=== PATIENT | female | born 1975 | race Caucasian/White ===

== ENCOUNTER 2018-05-20 15:20 | Emergency (ER) | payer OTHER ==
[2018-05-20 15:46] VITALS: BMI 29.3
[2018-05-20 15:47] VITALS: RESP 18
[2018-05-20] MEDS ORDERED: Sodium Chloride 0.9% 1,000 ML IV STA (16:14)
--- NOTE | 2018-05-20 16:16 | ED PDOC ---
Arrival/HPI - General Historian: Patient - History of Present Illness Narrative History of Present Illness (Text): 05/20/18 16:13 42 y/o female, pmh including renal stone, nkda, c/o lt. flank pain with hematuria started about 3 days ago with no fall or trauma. Aching and sharp p ain on the left flank region, associated with couple episodes of lt. flank pain and hematuria, no vaginal bleeding or discharge, no chest pain or shortness of breath, no palpitation, no night sweat, no dizziness, no change in vision, no other medical or psychological complaints. <Seng Loja - Last Filed: 05/20/18 18:07> <Gavin Delgadillo - Last Filed: 05/20/18 18:30> - General Chief Complaint: Female Genitourinary Time Seen by Provider: 05/20/18 15:55 Past Medical History - Provider Review Nursing Documentation Reviewed: Yes - Infectious Disease Hx of Infectious Diseases: None - Cardiac Hx Cardiac Disorders: No - Pulmonary Hx Respiratory Disorders: No - Neurological Hx Neurological Disorder: No - HEENT Hx HEENT Disorder: No - Renal Hx Renal Disorder: Yes Hx Kidney Stones: Yes - Endocrine/Metabolic Hx Endocrine Disorders: No - Hematological/Oncological Hx Blood Disorders: No - Integumentary Hx Dermatological Disorder: No - Musculoskeletal/Rheumatological Hx Musculoskeletal Disorders: No - Gastrointestinal Hx Gastrointestinal Disorders: No - Genitourinary/Gynecological Hx Genitourinary Disorders: No - Psychiatric Hx Psychophysiologic Disorder: No Hx Substance Use: No - Surgical History Hx Section: Yes (x 2) Other/Comment: Removal of kidney stone <Seng Loja - Last Filed: 05/20/18 18:07> Family/Social History - Physician Review Nursing Documentation Reviewed: Yes Family/Social History: Unknown Family HX Smoking Status: Never Smoked Hx Alcohol Use: No Hx Substance Use: No <Seng Loja - Last Filed: 05/20/18 18:07> Allergies/Home Meds <Seng Loja - Last Filed: 05/20/18 18:07> <Gavin Delgadillo - Last Filed: 05/20/18 18:30> Allergies/Adverse Reactions: Allergies No Known Allergies Allergy (Verified 05/20/18 15:47) Home Medications: Home Meds Medication Instructions Recorded Confirmed RX: Aspirin [Aspirin Chewable] 81 mg PO DAILY 05/20/18 05/20/18 Review of Systems - Review of Systems Constitutional: absent: Fatigue, Fevers Eyes: absent: Vision Changes ENT: absent: Hearing Changes Respiratory: absent: SOB, Cough Cardiovascular: absent: Chest Pain Gastrointestinal: absent: Abdominal Pain, Nausea, Vomiting Musculoskeletal: Back Pain. absent: Arthralgias, Neck Pain, Joint Swelling, Myalgias Skin: absent: Rash, Pruritis Psychiatric: absent: Anxiety, Depression, Suicidal Ideation <Seng Loja - Last Filed: 05/20/18 18:07> Physical Exam Vital Signs Reviewed: Yes Vital Signs Temp Pulse Resp BP Pulse Ox 05/20/18 15:46 99.0 F 84 18 136/85 100 Temperature: Afebrile Blood Pressure: Normal Pulse: Regular Respiratory Rate: Normal Appearance: Positive for: Well-Appearing, Non-Toxic, Comfortable Pain Distress: Mild Mental Status: Positive for: Alert and Oriented X 3 - Systems Exam Head: Present: Atraumatic, Normocephalic Pupils: Present: PERRL Extroacular Muscles: Present: EOMI Conjunctiva: Present: Normal Mouth: Present: Moist Mucous Membranes Neck: Present: Normal Range of Motion Respiratory/Chest: Present: Clear to Auscultation, Good Air Exchange. No: Respiratory Distress, Accessory Muscle Use Cardiovascular: Present: Regular Rate and Rhythm, Normal S1, S2. No: Murmurs Abdomen: No: Tenderness, Distention, Peritoneal Signs, Rebound, Guarding Back: Present: Normal Inspection, CVA Tenderness (+left) Upper Extremity: Present: Normal Inspection. No: Cyanosis, Edema Lower Extremity: Present: Normal Inspection, NORMAL PULSES. No: Edema, Tenderness Neurological: Present: GCS=15, CN II-XII Intact, Speech Normal, Motor Func Grossly Intact, Gait Normal, Memory Normal Skin: Present: Warm, Dry, Normal Color. 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 There is severe atrophy of the renal parenchyma. There is a 7 mm nonobstructing stone in the lower pole of the left kidney. The left renal collecting system is mildly dilated but there is no obstructing stone visualized. There is moderate distention of the bladder. -Labs show no acute findings -Lipase within normal limit -UA show no UTI but there is hematuria (pt. stated that she has no vaginal bleeding or discharge, hematuria can be from lt. renal stone 7mm but it's non- obstructed) but there is 7mm stone with rt. renal condition explained to the patient which is chronic as she is awared. Pt. has no flank pain at this time. -Discharge home with acetaminophen, macrobid, stay hydrated, follow up with your own pmd and urologist within 2 days, return to the ER for any new or worsening signs or symptoms. - RAD Interpretation Radiology Orders: 05/20/18 16:13 ABD & PELVIS W/O PO OR IV CONT [CT] Stat Date of service: 05/20/2018 PROCEDURE: CT Abdomen and Pelvis without intravenous contrast HISTORY: lt. flank pain with hematuria COMPARISON: None. TECHNIQUE: Without contrast.. Contrast dose: Radiation dose: Total exam DLP = 697.61 mGy-cm. This CT exam was performed using one or more of the following dose reduction techniques: Automated exposure control, adjustment of the mA and/or kV according to patient size, and/or use of iterative reconstruction technique. FINDINGS: LOWER THORAX: Unremarkable. LIVER: Unremarkable. No gross lesion or ductal dilatation. GALLBLADDER AND BILE DUCTS: Unremarkable. PANCREAS: Unremarkable. No gross lesion or ductal dilatation. SPLEEN: Unremarkable. ADRENALS: Unremarkable. No mass. 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 There is severe atrophy of the renal parenchyma. There is a 7 mm nonobstructing stone in the lower pole of the left kidney. The left renal collecting system is mildly dilated but there is no obstructing stone visualized. There is moderate distention of the bladder. VASCULATURE: Unremarkable. No aortic aneurysm. No aortic atherosclerotic calcification or mural plaque present. BOWEL: Unremarkable. No obstruction. No gross mural thickening. APPENDIX: Unremarkable. Normal appendix. PERITONEUM: Unremarkable. No free fluid. No free air. LYMPH NODES: Unremarkable. No enlarged lymph nodes. BLADDER: Moderate distention REPRODUCTIVE: Unremarkable. BONES: No acute fracture. OTHER FINDINGS: None. 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 There is severe atrophy of the renal parenchyma. There is a 7 mm nonobstructing stone in the lower pole of the left kidney. The left renal collecting system is mildly dilated but there is no obstructing stone visualized. There is moderate distention of the bladder. 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 <Seng Loja Q - Last Filed: 05/20/18 18:07> - Lab Interpretations Lab Results: Total Bilirubin 0.2 mg/dL (0.2-1.3) 05/20/18 17:20 AST 16 U/L (14-36) 05/20/18 17:20 ALT 21 U/L (7-56) 05/20/18 17:20 Alkaline Phosphatase 52 U/L (38-126) 05/20/18 17:20 Total Protein 8.0 g/dL (5.8-8.3) 05/20/18 17:20 Albumin 4.4 g/dL (3.0-4.8) 05/20/18 17:20 Globulin 3.6 gm/dL 05/20/18 17:20 Albumin/Globulin Ratio 1.2 (1.1-1.8) 05/20/18 17:20 Lipase 100 U/L (23-300) 05/20/18 17:20 Urine Color Straw (YELLOW) 05/20/18 16:15 Urine Appearance Clear (CLEAR) 05/20/18 16:15 Urine pH 7.5 (4.7-8.0) 05/20/18 16:15 Ur Specific [place] 1.010 (1.005-1.035) 05/20/18 16:15 Urine Protein Negative mg/dL (<30 mg/dL) 05/20/18 16:15 Urine Glucose (UA) Negative mg/dL (NEGATIVE) 05/20/18 16:15 Urine Ketones Negative mg/dL (NEGATIVE) 05/20/18 16:15 Urine Blood Large (NEGATIVE) H 05/20/18 16:15 Urine Nitrate Negative (NEGATIVE) 05/20/18 16:15 Urine Bilirubin Negative (NEGATIVE) 05/20/18 16:15 Urine Urobilinogen 0.2 E.U./dL (<1 E.U./dL) 05/20/18 16:15 Ur Leukocyte Esterase Negative Juliana/uL (NEGATIVE) 05/20/18 16:15 Urine RBC 25 - 30 /hpf (0-2) H 05/20/18 16:15 Urine WBC 2 - 5 /hpf (0-6) 05/20/18 16:15 Ur Epithelial Cells 4 - 5 /hpf (0-5) 05/20/18 16:15 Amorphous Sediment Trace /hpf (NONE) 05/20/18 16:15 - RAD Interpretation Radiology Orders: 05/20/18 16:13 ABD & PELVIS W/O PO OR IV CONT [CT] Stat - Medication Orders Current Medication Orders: Discontinued Medications Sodium Chloride (Sodium Chloride 0.9%) 1,000 mls @ 999 mls/hr IV .Q1H1M STA Stop: 05/20/18 17:14 Last Admin: 05/20/18 17:01 Dose: 999 mls/hr eMAR Start Stop Document 05/20/18 17:01 [facility] (Rec: 05/20/18 17:01 [facility] Intravenous Solution Start Date 05/20/18 Start Time 17:01 End Date 05/20/18 End time 18:01 Total Infusion Time 60 <Gavin Delgadillo - Last Filed: 05/20/18 18:30> - PA / MANAGER INPATIENT / Resident Statement TORIBIO has reviewed & agrees with the documentation as recorded. <Seng Loja - Last Filed: 05/20/18 18:07> - PA / MANAGER INPATIENT / Resident Statement TORIBIO has reviewed & agrees with the documentation as recorded. <Gavin Delgadillo - Last Filed: 05/20/18 18:30> Disposition/Present on Arrival - Present on Arrival Any Indicators Present on Arrival: No History of DVT/PE: No History of Uncontrolled Diabetes: No Urinary Catheter: No History of Decub. Ulcer: No History Surgical Site Infection Following: None - Disposition Have Diagnosis and Disposition been Completed?: Yes Disposition Time: 18:08 Patient Plan: Discharge <Seng Loja - Last Filed: 05/20/18 18:07> <Gavin Delgadillo - Last Filed: 05/20/18 18:30> - Disposition Diagnosis: Hematuria, Renal stone Disposition: HOME/ ROUTINE Patient Problems: Current Active Problems Problem Status Onset Hematuria Acute Renal stone Acute Condition: IMPROVED Additional Instructions: -Discharge home with acetaminophen, macrobid, stay hydrated, follow up with your own pmd and urologist within 2 days, return to the ER for any new or worsening signs or symptoms. Prescriptions: Nitrofurantoin Macrocrystals [Macrobid] 100 mg PO BID #14 cap RX: Acetaminophen [Pain Reliever] 500 mg PO QID PRN #30 tablet PRN Reason: Other Referrals: J Carlos Bishop MD [Staff Provider] - Follow up with primary Medhat Rosario MD [Staff Provider] - Follow up with primary [facility] - Follow up with primary Forms: [facility] (Latvian), WORK NOTE
[2018-05-20 16:22] LABS: PH,URINE 7.5 (4.7-8.0); URINE BILIRUBIN NEGATIVE (NEGATIVE); URINE BLOOD LARGE (NEGATIVE); URINE GLUCOSE (UA) NEGATIVE (NEGATIVE); URINE LEUKOCYTE ESTERASE NEGATIVE Leu/uL (NEGATIVE); URINE PROTEIN NEGATIVE mg/dL (<30 mg/dL); URINE UROBILINOGEN 0.2 E.U./dL (<1 E.U./dL)
[2018-05-20 16:40] LABS: URINE APPEARANCE CLEAR (CLEAR); URINE COLOR STRAW (YELLOW)
[2018-05-20 16:56] LABS: URINE AMORPHOUS SEDIMENT TRACE /hpf; URINE RBC 25 - 30 /hpf (0-2)
--- NOTE | 2018-05-20 16:57 | CT ---
Date of service: 05/20/2018 PROCEDURE: CT Abdomen and Pelvis without intravenous contrast HISTORY: lt. flank pain with hematuria COMPARISON: None. TECHNIQUE: Without contrast.. Contrast dose: Radiation dose: Total exam DLP = 697.61 mGy-cm. This CT exam was performed using one or more of the following dose reduction techniques: Automated exposure control, adjustment of the mA and/or kV according to patient size, and/or use of iterative reconstruction technique. FINDINGS: LOWER THORAX: Unremarkable. LIVER: Unremarkable. No gross lesion or ductal dilatation. GALLBLADDER AND BILE DUCTS: Unremarkable. PANCREAS: Unremarkable. No gross lesion or ductal dilatation. SPLEEN: Unremarkable. ADRENALS: Unremarkable. No mass. 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 There is severe atrophy of the renal parenchyma. There is a 7 mm nonobstructing stone in the lower pole of the left kidney. The left renal collecting system is mildly dilated but there is no obstructing stone visualized. There is moderate distention of the bladder. VASCULATURE: Unremarkable. No aortic aneurysm. No aortic atherosclerotic calcification or mural plaque present. BOWEL: Unremarkable. No obstruction. No gross mural thickening. APPENDIX: Unremarkable. Normal appendix. PERITONEUM: Unremarkable. No free fluid. No free air. LYMPH NODES: Unremarkable. No enlarged lymph nodes. BLADDER: Moderate distention REPRODUCTIVE: Unremarkable. BONES: No acute fracture. OTHER FINDINGS: None. 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 There is severe atrophy of the renal parenchyma. There is a 7 mm nonobstructing stone in the lower pole of the left kidney. The left renal collecting system is mildly dilated but there is no obstructing stone visualized. There is moderate distention of the bladder.
[2018-05-20 17:28] LABS: BASO # 0.02 K/mm3 (0.0-2.0); BASO % 0.3 % (0.0-3.0); EOS # 0.1 (0.0-0.7); EOS % 0.9 % (1.5-5.0); GRAN # 4.19 (1.4-6.5); GRAN % 60.5 % (50.0-68.0); HEMOGLOBIN 12.2 g/dL (12.0-16.0); LYMPH # 2.3 (1.2-3.4); LYMPH % 32.7 % (22.0-35.0); MEAN CELL VOLUME 78.2 fl (80.0-105.0); MEAN CORPUSCULAR HEMOGLOBIN 25.8 pg (25.0-35.0); MEAN PLATELET VOLUME 11.1 fl (7.0-11.0); MONO # 0.4 (0.1-0.6); MONO % 5.6 % (1.0-6.0); RBC 4.73 10^6/uL (3.5-6.1); RED CELL DISTRIBUTION WIDTH 14.7 % (11.5-14.5); WHITE BLOOD COUNT 6.9 10^3/uL (4.5-11.0)
[2018-05-20 17:34] LABS: ALB/GLOB RATIO 1.2 (1.1-1.8); ALBUMIN 4.4 g/dL (3.0-4.8); ALT/SGPT 21 U/L (7-56); AST/SGOT 16 U/L (14-36); BLOOD UREA NITROGEN 15 mg/dL (7-21); CALCIUM 9.2 mg/dL (8.4-10.5); GFR NON-AFRICAN AMERICAN > 60; LIPASE 100 U/L (23-300)
[2018-05-20 19:02] VITALS: BP 131/84; PULSE 79; TEMP 98.7; O2SAT 99
== END 2018-05-20 19:02 | disposition home or self-care (01) ==
LOC: ED 15:20
DX: N20.0 Calculus of kidney (principal); R31.9 Hematuria, unspecified
CPT/HCPCS: 74176; 80053; 81001; 81025; 83690; 83735; 85025; 96360; 99283; J7030